=== PATIENT | male | born 1975 | race Caucasian/White ===

== ENCOUNTER 2017-12-15 17:53 | Inpatient (IN) | payer SELFPAY ==
[~2017-12-15] VITALS: Ht 170.2 cm; Wt 63.5 kg
[2017-12-15 19:39] LABS: BASOPHILS % 0.8 % (0.0-2.0); EOSINOPHILS % 0.7 % (0.0-5.0); HEMATOCRIT. 49.5 % (42.0-52.0); HEMOGLOBIN. 17.2 g/dL (14.0-18.0); LYMPHOCYTES % 27.7 % (20.0-50.0); MEAN CORPUSCULAR HEMOGLOBIN 31.8 pg (28.0-32.0); MEAN CORPUSCULAR VOLUME 91.6 fL (80.0-94.0); MEAN PLATELET VOLUME 9.4 fl (7.4-10.4); MONOCYTES % 8.8 % (2.0-8.0); PLATELET 234 x1000/uL (130-400)
[2017-12-15 19:45] LABS: CHLORIDE 107 mEq/L (98-107)
[2017-12-15 19:46] LABS: INR 1.1; PROTHROMBIN TIME 11.4 sec (9.4-11.6)
[2017-12-15] MEDS ORDERED: SODIUM CHLORIDE 0.9% 1,000 ML IV ONE (20:28)
[2017-12-15 21:04] LABS: *AMPHETAMINES SCREEN URINE NEGATIVE (NEGATIVE); *BARBITURATES SCREEN URINE NEGATIVE (NEGATIVE); *COCAINE SCREEN URINE NEGATIVE (NEGATIVE); CANNABINOID URINE SCREEN NEGATIVE (NEGATIVE)
[2017-12-15 21:05] LABS: *BENZODIAZEPINES SCREEN URINE NEGATIVE (NEGATIVE); METHADONE URINE SCREEN NEGATIVE (NEGATIVE); OPIATES URINE SCREEN NEGATIVE (NEGATIVE); PHENCYCLIDINE URINE SCREEN NEGATIVE (NEGATIVE)
[2017-12-15 21:19] LABS: ETHANOL BLOOD < 10 mg/dL
[2017-12-15 21:24] LABS: CREATINE KINASE 73 IU/L (39-308)
[2017-12-15] MEDS ORDERED: ASPIRIN 325MG EC TABLET PO ONE (22:00)
[2017-12-15] MEDS ORDERED: ACETAMINOPHEN 325MG TABLET PO PRN (23:45)
[2017-12-15] MEDS ORDERED: MAGNESIUM/ALUMINUM HYDROXIDE/SIMETHICONE 30ML UDC PO PRN (23:45)
[2017-12-15] MEDS ORDERED: ONDANSETRON HCL 4MG/2ML VIAL IV PRN (23:45)
[2017-12-15] MEDS ORDERED: CLONIDINE 0.1MG TABLET PO PRN (23:45)
[2017-12-15] MEDS ORDERED: HYDROCODONE/ACETAMINOPHEN 5/325MG TABLET PO PRN (23:45)
[2017-12-15] MEDS ORDERED: IPRATROPIUM/ALBUTEROL 0.5-3(2.5)MG/3ML NEB INH PRN (23:45)
[2017-12-15] MEDS ORDERED: LORAZEPAM 2MG/ML CPJ IV PRN (23:45)
[2017-12-15] MEDS ORDERED: MORPHINE SULFATE 4 MG/ML CPJ (NOT FOR IM USE) IV PRN (23:45)
[2017-12-15] MEDS ORDERED: NA PHOS,M-B/NA PHOS,DI-BA ENEMA 118ML PR PRN (23:45)
[2017-12-15] MEDS ORDERED: DIPHENHYDRAMINE 50MG/ML VIAL IV PRN (23:45)
[2017-12-15] MEDS ORDERED: DOCUSATE SODIUM 100MG CAPSULE PO PRN (23:45)
[2017-12-15] MEDS ORDERED: GUAIFENESIN 200MG/10ML SUGAR FREE UDC PO PRN (23:45)
[2017-12-16 00:18] LABS: CHLORIDE 110 mEq/L (98-107)
[2017-12-16 05:49] LABS: BASOPHILS % 0.8 % (0.0-2.0); EOSINOPHILS % 1.5 % (0.0-5.0); HEMATOCRIT. 45.5 % (42.0-52.0); HEMOGLOBIN. 15.5 g/dL (14.0-18.0); LYMPHOCYTES % 38.7 % (20.0-50.0); MEAN CORPUSCULAR VOLUME 90.7 fL (80.0-94.0); MEAN PLATELET VOLUME 9.6 fl (7.4-10.4); MONOCYTES % 10.5 % (2.0-8.0); NEUTROPHILS % 48.5 % (40.0-76.0); PLATELET 233 x1000/uL (130-400); RED BLOOD CELL COUNT 5.02 mill/uL (4.7-6.1); RED CELL DISTRIBUTION WIDTH 13.2 % (11.6-14.6)
[2017-12-16 05:53] LABS: CHLORIDE 109 mEq/L (98-107)
[2017-12-16 06:01] LABS: HDL CHOLESTEROL 48 mg/dL (40-59)
[2017-12-16 06:03] LABS: LDL CHOLESTEROL 83 mg/dL (5-100)
[2017-12-16 06:05] LABS: T4 FREE 0.95 ng/dL (0.76-1.46)
[2017-12-16 16:00] VITALS: BP 106/67
[2017-12-16 20:00] VITALS: BP 109/65
[2017-12-17] VITALS: BP 110/69
[2017-12-17 04:00] VITALS: BP 108/70
[2017-12-17 08:00] VITALS: BP 104/71
[2017-12-17 12:00] VITALS: BP 104/60
[2017-12-17 14:40] VITALS: BP 104/60
== END 2017-12-17 15:10 | disposition home or self-care (01) | DRG 47 ==
LOC: ER 18:59 → EDBEDREQTM 22:00 → EDBEDREQ 22:00 → 7WST 22:02 → ENRESERV 12-16 14:07
PROVIDERS: ADMIT Internal Medicine; ATTEND Internal Medicine
DX: G45.9 Transient cerebral ischemic attack, unspecified (principal); Z79.82 Long term (current) use of aspirin
CPT/HCPCS: 36415; 70450; 71045; 80048; 80053; 80061; 80305; 82550; 84439; 84443; 84484; 85025; 85610; 93005; 99285; G0482; J7030